=== PATIENT | female | born 1955 | race Caucasian/White ===

== ENCOUNTER 2019-08-16 07:21 | Inpatient (IN) ==
[2019-08-16] MEDS ORDERED: Lidocaine HCL 4 ML Topical Solution (Laryng-O-Jet Kit Sterile Pak) TP ONE (07:43)
[2019-08-16] MEDS ORDERED: Dexamethasone 4 MG/ML VIAL ONE (07:43)
[2019-08-16] MEDS ORDERED: *HR* FentaNYL (PF) 100 MCG/2 ML VIAL ONE (07:43)
[2019-08-16] MEDS ORDERED: Lidocaine -MPF 2% 2 ML VIAL ONE (07:43)
[2019-08-16] MEDS ORDERED: Ondansetron 4 MG/2 ML VIAL ONE (07:43)
[2019-08-16] MEDS ORDERED: *HR* Succinylcholine 200 MG/10 ML VIAL IVP ONE (07:43)
[2019-08-16] MEDS ORDERED: *HR* Propofol 200 MG/20 ML VIAL IVP ONE (07:43)
[2019-08-16] MEDS ORDERED: *HR* Phenylephrine 10 MG/ML VIAL ONE (07:43)
[2019-08-16] MEDS ORDERED: *HR* Midazolam HCl 2 MG/2 ML VIAL ONE (08:09)
[2019-08-16] MEDS ORDERED: Ropivacaine/PF 0.5% 30 ML VIAL ONE (08:12)
[2019-08-16] MEDS ORDERED: ROPIVACAINE/PF/NS 0.25% 1 EACH SYRINGE INTRAART ONE (08:12)
[2019-08-16] MEDS ORDERED: CeFAZolin Syr 2,000MG/20 ML 2,000 MG/20 ML SYRINGE IVPB ONE (08:24)
[2019-08-16] MEDS ORDERED: *HR* HYDROmorphone PF 0.5 MG/0.5 ML SYRINGE IVP PRN (09:16)
[2019-08-16] MEDS ORDERED: Acetaminophen IV 1,000 MG/100 ML INFUS..BTL IVPB ONE (09:16)
[2019-08-16] MEDS ORDERED: *HR* Promethazine 25 MG/ML VIAL IVP PRN (09:16)
[2019-08-16] MEDS ORDERED: *HR* Midazolam HCl 2 MG/2 ML VIAL IVP PRN (09:16)
[2019-08-16] MEDS ORDERED: *HR* FentaNYL (PF) 100 MCG/2 ML VIAL IVP PRN (09:16)
[2019-08-16] MEDS ORDERED: Ondansetron ODT 4 MG TAB.RAPDIS SL ONE (09:16)
[2019-08-16] MEDS ORDERED: *HR* Meperidine 25 MG/ML SYRINGE IVP PRN (09:16)
[2019-08-16] MEDS ORDERED: *HR* OxyCODONE Immed Rel 5 MG TABLET PO PRN ×2 (09:16→11:38)
[2019-08-16] MEDS ORDERED: *HR* Labetalol 20 MG/4 ML SYRINGE IVP PRN (09:16)
[2019-08-16] MEDS ORDERED: Ringers Solution, Lactated 1,000 ML IVC SCH ×2 (09:30→11:38)
[2019-08-16] MEDS ORDERED: *HR* Rocuronium Bromide 50 MG/5 ML VIAL ONE (10:35)
[2019-08-16] MEDS ORDERED: Vancomycin 1,000 MG VIAL ONE (10:37)
[2019-08-16] MEDS ORDERED: Ondansetron 4 MG/2 ML VIAL IVP PRN (11:38)
[2019-08-16] MEDS ORDERED: Sennosides 8.6 MG TABLET PO PRN (11:38)
[2019-08-16] MEDS ORDERED: *HR* OxyCODONE/APAP 5/325 TABLET PO PRN (11:38)
[2019-08-16] MEDS ORDERED: *HR* Dextrose 50 % in Water (Vial) 50 ML VIAL IVP PRN (11:38)
[2019-08-16] MEDS ORDERED: Dextrose Gel 15 GM/37.5 ML TUBE PO PRN ×2 (11:38)
[2019-08-16] MEDS ORDERED: Insulin LISPRO 300 UNITS/3 ML VIAL SQ SCH ×2 (11:38→21:00)
[2019-08-16] MEDS ORDERED: D5% in Water 1,000 ML IVC PRN (11:38)
[2019-08-16] MEDS ORDERED: Naloxone 0.4 MG/ML INJ IVP PRN (11:38)
[2019-08-16] MEDS ORDERED: MOM Conc 10 ML UD.LIQ PO PRN (11:38)
[2019-08-16 11:59] LABS: Hematocrit 41.1 % (35.3-44.9); Hemoglobin 12.8 g/dL (11.5-15.4)
[2019-08-16] MEDS ORDERED: CeFAZolin 2 GM/120 ML BAG IVPB SCH (16:00)
[2019-08-16 16:23] VITALS: BP 118/77
[2019-08-16] MEDS ORDERED: *HR* Enoxaparin 30 MG/0.3 ML SYRINGE SQ SCH ×2 (18:00)
== END 2019-08-16 17:18 | disposition home or self-care (01) | DRG 483 ==
LOC: SAMDAY 07:21 → 3NENU 11:38
PROVIDERS: ADMIT Orthopaedic Surgery; ATTEND Orthopaedic Surgery

== ENCOUNTER 2019-08-18 12:11 | Observation (INO) ==
[2019-08-18] MEDS ORDERED: *HR* Promethazine 25 MG/ML VIAL IVP PRN (14:17)
[2019-08-18] MEDS ORDERED: *HR* OxyCODONE/APAP 5/325 TABLET PO ONE (15:18)
[2019-08-18] MEDS ORDERED: Ringers Solution, Lactated 1,000 ML IVC ONE (16:13)
[2019-08-18] MEDS: polyethylene glycoL 3350 17 GM POWD.PACK PO SCH (16:49)
[2019-08-18 17:22] LABS: Bilirubin,Urine Negative (Negative); Blood,Urine Negative (Negative); Clarity,Urine Clear (Clear); Color,Urine Colorless (Yellow); Glucose,Urine (UA) Normal (Normal); Ketones,Urine Negative (Negative); Leukocyte Esterase,Urine Negative (Negative); Nitrite,Urine Negative (Negative); PH,Urine 7.5 pH Units (5.0-8.0); Protein,Urine Negative (Neg-Trace); Specific Gravity,Urine 1.027 (1.010-1.025); Urobilinogen,Urine Normal (Normal)
[2019-08-18] MEDS: *HR* Enoxaparin 40 MG/0.4 ML SYRINGE SQ SCH (20:54)
[2019-08-19] MEDS: *HR* Enoxaparin 40 MG/0.4 ML SYRINGE SQ SCH (05:40)
[2019-08-19] MEDS: *HR* HYDROcodone/Acet 5/325 mg TABLET PO PRN ×3 (05:51→18:20)
[2019-08-19 06:40] LABS: Hematocrit 37.5 % (35.3-44.9); Hemoglobin 11.8 g/dL (11.5-15.4); Mean Corpuscular HGB Conc 31.5 g/dL (31.6-35.5); Mean Corpuscular Hemoglobin 28.9 pg (28.0-33.3); Mean Corpuscular Volume 91.9 fL (83.0-100.0); Mean Platelet Volume 10.9 fL (9.4-12.4); Platelet Count 196 K/mcL (140-400); Red Blood Count 4.08 M/mcL (3.82-4.97); Red Cell Distribution Width 13.2 % (11.5-14.5); White Blood Count 9.1 K/mcL (4.3-11.1)
[2019-08-19 06:55] LABS: BUN/Creatinine Ratio 12 (6-26); Blood Urea Nitrogen 8 mg/dL (8-23); Calcium 9.1 mg/dL (8.6-10.3); Carbon Dioxide 24 mEq/L (23-29); Chloride 106 mEq/L (98-107); Glucose 101 mg/dL (70-105); Osmolality,Calculated 286 (280-300); Potassium 3.6 mEq/L (3.5-5.1); Sodium 139 mEq/L (136-145); eGFR For African Americans > 60 (> 60); eGFR For Non-African Americans > 60 (> 60)
[2019-08-19] MEDS ORDERED: tiZANidine 4 MG TABLET PO PRN (07:37)
[2019-08-19] MEDS: Magnesium Oxide 400 MG TABLET PO SCH ×2 (08:40→22:37)
[2019-08-19] MEDS: polyethylene glycoL 3350 17 GM POWD.PACK PO SCH (08:40)
[2019-08-19] MEDS: Gabapentin 300 MG CAPSULE PO SCH ×3 (08:40→22:37)
[2019-08-19] MEDS: FLUoxetine 20 MG CAPSULE PO SCH (08:40)
[2019-08-19] MEDS: Cholecalciferol (D-3) 1,000 UNIT (25MCG) TABLET PO SCH (08:41)
[2019-08-19] MEDS: Aspirin 325 MG TABLET PO SCH (08:41)
[2019-08-19] MEDS ORDERED: *HR* HYDROcodone/Acet 5/325 mg TABLET PO ONE (21:00)
[2019-08-20] MEDS: *HR* Enoxaparin 40 MG/0.4 ML SYRINGE SQ SCH (05:37)
[2019-08-20] MEDS ORDERED: Regadenoson 0.4 MG/5 ML SYRINGE IVP ONE (06:34)
[2019-08-20] MEDS: *HR* HYDROcodone/Acet 5/325 mg TABLET PO PRN (09:42)
[2019-08-20] MEDS: Magnesium Oxide 400 MG TABLET PO SCH (09:42)
[2019-08-20] MEDS: FLUoxetine 20 MG CAPSULE PO SCH (09:42)
[2019-08-20] MEDS: Cholecalciferol (D-3) 1,000 UNIT (25MCG) TABLET PO SCH (09:42)
[2019-08-20] MEDS: Gabapentin 300 MG CAPSULE PO SCH (09:42)
[2019-08-20] MEDS: polyethylene glycoL 3350 17 GM POWD.PACK PO SCH (09:43)
[2019-08-20] MEDS: Aspirin 325 MG TABLET PO SCH (09:43)
[2019-08-20 11:06] VITALS: BP 123/79
== END 2019-08-20 13:45 | disposition home or self-care (01) ==
LOC: 3ANU → SUATTDRO 13:58
PROVIDERS: ADMIT Pharmacist; ATTEND Internal Medicine